=== PATIENT | male | born 1960 | race Caucasian/White ===

== ENCOUNTER 2022-09-23 11:03 | Emergency (ER) | payer SELFPAY ==
[~2022-09-23] VITALS: Ht 182.9 cm; Wt 90.7 kg
[2022-09-23 11:06] VITALS: BP 134/84
--- NOTE | 2022-09-23 11:10 | NUR ---
BIBA [id number] "Homeless- deformity on RIGHT wrist xcouple days".
--- NOTE | 2022-09-23 11:45 | NUR ---
X-RAY TECH AT BEDSIDE
--- NOTE | 2022-09-23 12:25 | NUR ---
patient taken to ct via graciela
[2022-09-23] MEDS ORDERED: IBUP-1957 PO (13:07)
--- NOTE | 2022-09-23 13:15 | NUR ---
REGISTERED NURSE RENAL AT BEDSIDE
--- NOTE | 2022-09-23 13:19 | NUR ---
"SW Consult: SW consult requested for patient possible homelessness. Pt brought to the ER for wrist pain. Pt appeared to be alert and oriented x3 (self,place,situation). Pt appeared manic and hyperverbal. Pt unable to remain appropriate eye contact, he kept looking around. Pt's speech did seem to be somewhat pressured and loud. Pt appeared disheveled and ungroomed. Pt reported that he is Schizophrenic. He reported to this policy writer sales that he has been homeless for 15 years and has been living on the streets. He reported that he has no social support (no family or friends). Pt denies suicidal ideation or homicidal ideation. Pt denies visual/auditory hallucinations. Pt was requesting for homeless group home resources. SW assessed for substance abuse. Pt reported that he only smokes and does not use any drugs or drink alcohol. SW offered pt resources and pt was accepting of shelters and substance abuse referrals for smoking. DC: Pt stated that his plan would be back to the streets and would want resources for help because he is homeless. Shelters: [facility] Provider: [facility] Address: [facility], [address] # of Beds: 47 Population Served: [facility] 6 | [facility] Magui Tuckerhune [place] Provider: [facility] Address: [address] [place] [address], [facility] # of Beds: 66 Population Served: [facility] [place] Provider: [facility] Address: [address] [facility] [place], [address] # of Beds: 56 Population Served: [facility] Kian [place] Provider: [facility] Address: [address] [facility], [address] # of Beds: 49 Population Served: [facility] 8 | [facility] Provider: [facility] Address: [address] [facility], [address] # of Beds: 37 Population Served: [facility] Hygiene: [facility]ty Center: [address] [address] [place] ; [facility] [address] [facility] ; [facility] [address] Angelica Eckley Svetlana . Food Resources: [place] [employer] at [facility]- [address]. [place]; Meet Each Need with Dignity ([facility]) [address] [facility]; [facility] [address] [facility]; [facility] [address]65 [facility]. Mental Health resources provided: [facility] [address] [place], [place] [id number] ; [facility] [employer] [address] [facility] [address], [place] [id number] ; [facility] [address] [facility] [place] [address] ; [facility] [place], [place] [id number] Healthcare Clinics: [facility] [address] [facility], [address] [place]. [place] ; [facility] [address] [facility] [address] [place] [address]; [facility] [address] [facility] [place] [phone]) [phone] Counseling--Outpatient [facility] [address] [facility], [place] [address] (Specializes in in-depth psychotherapy for emotional distress: anxiety, depression, interpersonal conflicts, life transitions, childhood abuse) [facility] [address] [place] [address] (Assist with solving problem marital difficulties, separation & divorce, aging parents, & grief, chronic & terminal illness) [facility] [address] [place] [address] (Deal with loss & grief, anxiety, marital difficulties) Homebound/Mental Health Services [address] [facility] [address] [place] [address] (Provide in-home mental services to people who are incapable of leaving their homes) [facility] Elder[facility] Senior Service/Resource Center [address] [place] [address] [facility] [address] [address] PSYCHIATRIC OUTPATIENT SERVICES [facility] Partial Hospitalization and Intensive Outpatient Program (Managed Care and Lloyd Only)[address] [facility] [phone] [facility] Partial Hospitalization and Outpatient [id number] [facility]. [address] [place], [place] [phone] [facility] Cpo81877 [facility] [address], [place] [phone] [facility] Partial Hospitalization and Outpatient Nccvdmt48500 [place], [phone] Substance Abuse resources provided included: [facility] Substance Abuse Self-Helpline ([facility]) ; CRI -[facility]LP [address] [facility]. [place] [address] ; [facility] [address] [facility] [address] ; [facility] [address] [address]vd[facility]. [facility] [address] ; [facility] [address] [facility] [phone] ; [facility] [address] [facility] [address] ; [facility] [address] [facility] [address] ; [facility] Substance Abuse Helpline([facility] ; [facility] Family Counseling ; [facility] [place]; [facility] [place]; C[facility] [place]; [facility] Jan Motamisha; [facility] [place]; [place]; [facility] [place]; [facility], [facility]. [place]; Alcoholics Anonymous -[facility]; Uq-Gtbz-Llatggd ; Marijuana Anonymous -[facility]; Narcotics Anonymous www.[email or web address];"
--- NOTE | 2022-09-23 14:00 | NUR ---
Patient discharged to home in stable condition. Written and verbal after care instructions given. Patient verbalizes understanding of instruction.
== END 2022-09-23 14:00 | disposition home or self-care (01) ==
LOC: ER 11:05
DX: S69.91XA Unspecified injury of right wrist, hand and finger(s), initial encounter (principal); I10 Essential (primary) hypertension; Z59.00 Homelessness unspecified; X58.XXXA Exposure to other specified factors, initial encounter; Y93.89 Activity, other specified; Y92.89 Other specified places as the place of occurrence of the external cause; Y99.8 Other external cause status
CPT/HCPCS: 73110; 73200-TC